=== PATIENT | female | born 1965 | race Caucasian/White ===

== ENCOUNTER 2018-05-15 12:44 | Emergency (ER) | payer OTHER ==
--- NOTE | 2018-05-15 13:13 | PDOC ---
History of Present Illness - General Chief Complaint: Back Pain Stated Complaint: lower back pain Time Seen by Provider: 05/15/18 12:45 History Source: Patient Exam Limitations: No Limitations - History of Present Illness Initial Comments: 05/15/18 13:12 61-year-old female here today complaining of low back pain. Patient states her symptoms started 3-4 days ago denies any trauma no fever no chills. No urinary complaints. Patient states she did miss her last. Her LMP was 6 weeks ago April 06 no fevers no chills no new weakness numbness or tingling. Pain is worse with bending and movements also going from lying to sitting position Past History - Past Medical History Allergies/Adverse Reactions: Allergies Allergy/AdvReac Type Severity Reaction Status Date / Time No Known Allergies Allergy Verified 05/15/18 12:44 Home Medications: Ambulatory Orders Ibuprofen 600 mg PO TID #90 tablet MDD 3 05/15/18 - Suicide/Smoking/Psychosocial Hx Smoking History: Never smoked Hx Alcohol Use: No Substance Use Type: None Review of Systems - Review of Systems Constitutional: No: Chills, Diaphoresis, Fever Respiratory: No: Cough, Orthopnea, Shortness of Breath : No: Burning, Dysuria Musculoskeletal: Yes: Back Pain Integumentary: No: See HPI, Bruising Hematologic/Lymphatic: No: Anemia All Other Systems: Reviewed and Negative *Physical Exam - Physical Exam Comments: 05/15/18 13:13 Awake alert no acute distress lungs are clear bilaterally heart is regular without any murmurs rubs or gallops abdomen is soft and nontender no palpable pulsatile mass. Back exam demonstrates no midline vertebral body tenderness. There is some paraspinal lumbosacral muscle spasm and tenderness in the sacral region. Lower extremity strength testing is 5 out of 5 on hip flexion, extension , knee flexion, extension, and dorsiflexion, plantarflexion. Sensation is intact to bilateral lower extremities Medical Decision Making - Medical Decision Making 05/15/18 13:14 differential diagnosis includes low back msk strain UTI is less likely, will check ua , ucg. Plan start with Tylenol for pain control if . Likely discharge home with medcations *DC/Admit/Observation/Transfer Diagnosis at time of Disposition: Low back strain - Discharge Dispostion Disposition: HOME Condition at time of disposition: Improved Decision to Admit order: No - Prescriptions Prescriptions: Ibuprofen 600 mg PO TID #90 tablet MDD 3 - Referrals - Patient Instructions Printed Discharge Instructions: DI for Back Strain or Sprain Additional Instructions: No heavy lifting for one week. Take Motrin 6 and a milligrams every 6-8 hours as needed for pain return for any new weakness numbness tingling or any concerns follow-up care doctor on Thursday as previously scheduled your urinalysis was negative for any infection today or other abnormalities - Post Discharge Activity
[2018-05-15 13:17] VITALS: BP 147/91; PULSE 78; TEMP 98.1; BMI 24.8
[2018-05-15] MEDS ORDERED: ACETAMINOPHEN 325 MG TABLET (FP) PO ONE (13:25)
[2018-05-15] MEDS ORDERED: ACETAMINOPHEN 325 MG TABLET (FP) ONE (13:29)
[2018-05-15 13:59] LABS: URINE APPEARANCE Clear; URINE BILIRUBIN Negative (NEGATIVE); URINE COLOR Yellow; URINE GLUCOSE (UA) Negative (NEGATIVE); URINE KETONE Negative (NEGATIVE); URINE LEUK ESTERASE Negative (NEGATIVE); URINE NITRITE Negative (NEGATIVE); URINE PROTEIN Negative (NEGATIVE); URINE UROBILINOGEN 0.2 (0.2-1.0)
[2018-05-15 14:08] LABS: HCG,QUALITATIVE URINE Negative
[2018-05-15] MEDS ORDERED: KETOROLAC TROMETHAMINE 30 MG/1 ML VIAL IM ONE (14:12)
[2018-05-15] MEDS ORDERED: KETOROLAC TROMETHAMINE 30 MG/1 ML VIAL ONE (14:14)
== END 2018-05-15 15:26 | disposition home or self-care (01) ==
LOC: FER 12:44
PROC: 3E0233Z Introduction of Anti-inflammatory into Muscle, Percutaneous Approach (ICD-10-PCS; principal; 2018-05-15)
DX: S39.012A Strain of muscle, fascia and tendon of lower back, initial encounter (principal); X58.XXXA Exposure to other specified factors, initial encounter; Y93.89 Activity, other specified; Y92.9 Unspecified place or not applicable
CPT/HCPCS: 81003; 84703; 99282-25